=== PATIENT | male | born 1985 | race Caucasian/White ===

== ENCOUNTER 2022-05-25 20:08 | Emergency (ER) | payer BC ==
[2022-05-25] MEDS ORDERED: Lidocaine 2% 10 ML Amp INJECT ONE (20:34)
[2022-05-25] MEDS ORDERED: Diphtheria,Pertussis(Acell),Tetanus Vaccine 0.5 ML Syringe IM ONE (20:35)
== END 2022-05-25 21:10 | disposition home or self-care (01) ==
LOC: VM.ED 20:08
DX: S60.450A Superficial foreign body of right index finger, initial encounter (principal); Z23 Encounter for immunization; W45.8XXA Other foreign body or object entering through skin, initial encounter
CPT/HCPCS: 10120; 90471; 90715; 99283; 99283-25